=== PATIENT | male | born 1965 | race Caucasian/White ===

== ENCOUNTER 2016-11-17 21:06 | Emergency (ER) | payer OTHER ==
[~2016-11-17] VITALS: Ht 182.9 cm; Wt 127.0 kg
[2016-11-17 21:28] VITALS: BP 141/59
== END 2016-11-18 02:12 | disposition left against medical advice (07) ==
LOC: ER 21:10
DX: J02.9 Acute pharyngitis, unspecified (principal); Z53.21 Procedure and treatment not carried out due to patient leaving prior to being seen by health care provider